=== PATIENT | female | born 2005 | race American Indian/Alaskan Native ===

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

== ENCOUNTER 2024-01-07 07:04 | Emergency (ER) | payer BC ==
[2024-01-07] MEDS: Metoclopramide 10 MG/2 ML SDV IVPUSH ONE (07:33)
[2024-01-07] MEDS: Ketorolac 30 MG/ML SDV IVPUSH ONE (07:35)
[2024-01-07] MEDS: Sodium Chloride 0.9% 1,000 ML IV ONE (07:55)
[2024-01-07 07:56] LABS: A/G RATIO 0.9; ALANINE AMINOTRANSFERASE,ALT 18 U/L (14-59); ALBUMIN 3.4 g/dL (3.4-5.0); ALKALINE PHOSPHATASE 99 U/L (46-116); ANION GAP 11.4 mEq/L (7-13); ASPARTATE AMNIOTRANSFERASE,AST 9 U/L (15-37); BILIRUBIN TOTAL 0.2 mg/dL (0.2-1.0); BLOOD UREA NITROGEN,BUN 11 mg/dL (7-18); BUN/CREATININE RATIO 14.7 (No establ ref range); C-REACTIVE PROTEIN 1.65 ng/dL (<=0.50); CALCIUM 8.4 mg/dL (8.5-10.1); CARBON DIOXIDE,CO2 25 mmol/L (21-32); CHLORIDE,CL 106 mmol/L (98-107); CREATININE 0.75 mg/dL (0.55-1.02); EST CRCL DRUG DOSING (CG) 104.18 mL/min; GLUCOSE RANDOM 114 mg/dL (70-99); LIPASE 32 U/L (16-77); POTASSIUM,K 3.4 mmol/L (3.5-5.1); PROTEIN TOTAL,TP 7.3 g/dL (6.4-8.2); SODIUM,NA 139 mmol/L (136-145)
[2024-01-07 07:57] LABS: ESTIMATED GFR 118 mL/min (>=60)
[2024-01-07 08:02] LABS: INR 0.9 (0.9-1.2); PROTHROMBIN TIME 9.6 SEC (9.0-12.0)
[2024-01-07 08:05] LABS: HCG QUALITATIVE,SERUM NEGATIVE (NEGATIVE)
[2024-01-07] MEDS: Iopamidol 612 MG/ML 100 ML Bottle IVPUSH ONE (08:11)
[2024-01-07] MEDS: Potassium Chloride 10 MEQ Tab.ER PO ONE (08:58)
[2024-01-07 09:13] LABS: APPEARANCE,URINE CLEAR (CLEAR); BILIRUBIN,URINE NEGATIVE (NEGATIVE); COLOR,URINE YELLOW (YELLOW); GLUCOSE,URINE NEGATIVE (NEGATIVE); KETONES,URINE NEGATIVE (NEGATIVE); LEUKOCYTE ESTERASE,URINE NEGATIVE (NEGATIVE); NITRITE,URINE NEGATIVE (NEGATIVE); OCCULT BLOOD,URINE NEGATIVE (NEGATIVE); PROTEIN,URINE NEGATIVE (NEGATIVE); UROBILINOGEN,URINE 0.2 mg/dL (0.2-1.0)
== END 2024-01-07 10:00 | disposition home or self-care (01) ==
LOC: DL.ED 07:04
DX: K80.20 Calculus of gallbladder without cholecystitis without obstruction (principal); K21.9 Gastro-esophageal reflux disease without esophagitis; E66.9 Obesity, unspecified; Z79.899 Other long term (current) drug therapy
CPT/HCPCS: 36415; 74177; 76705; 80053; 81003; 83605; 83690; 84703; 85025; 85610; 86140; 96361; 96374; 96375; 99284; 99284-25; A9270-GY; J1885; J2765; J7030; Q9967

== ENCOUNTER 2024-01-30 19:07 | Emergency (ER) | payer BC ==
[2024-01-30] MEDS: Ondansetron 4 MG/2 ML SDV IVPUSH ONE (19:36)
[2024-01-30 19:42] LABS: BASOPHILS PERCENT AUTO 0.5 % (0.0-1.0); HEMATOCRIT 37.1 % (37.0-47.0); HEMOGLOBIN 11.9 g/dL (12.0-16.0); LYMPHOCYTES PERCENT AUTO 29.8 % (20.5-50.1); MEAN CORPUSCULAR HEMOGLOBIN 27.6 pg (27.0-34.0); MEAN CORPUSCULAR HGB CONC 32.1 g/dL (33.0-35.0); MEAN CORPUSCULAR VOLUME 86.1 fL (80-100); MONOCYTES PERCENT AUTO 6.3 % (2-8); NEUTROPHILS PERCENT AUTO 62.4 % (42.2-75.2); PLATELET COUNT,PLT 447 10^3/uL (150-450); RED BLOOD CELL COUNT 4.31 10^6/uL (4.2-5.4); WHITE BLOOD CELL COUNT,WBC 12.4 10^3/uL (5.0-10.0)
[2024-01-30 19:54] LABS: A/G RATIO 0.8; ALBUMIN 3.6 g/dL (3.4-5.0); ANION GAP 13.2 mEq/L (7-13); BILIRUBIN TOTAL 0.4 mg/dL (0.2-1.0); BUN/CREATININE RATIO 8.9 (No establ ref range); CALCIUM 8.5 mg/dL (8.5-10.1); CREATININE 0.9 mg/dL (0.55-1.02); EST CRCL DRUG DOSING (CG) 86.82 mL/min; POTASSIUM,K 3.2 mmol/L (3.5-5.1); PROTEIN TOTAL,TP 7.9 g/dL (6.4-8.2)
[2024-01-30] MEDS: fentaNYL 100 MCG/2 ML SDV IVPUSH ONE (20:39)
[2024-01-30] MEDS: Iopamidol 612 MG/ML 100 ML Bottle IVPUSH ONE (20:51)
[2024-01-30] MEDS: Iopamidol 755 Mg/ML 100 ML Bottle IVPUSH ONE (21:09)
[2024-01-30] MEDS: NS + KCl 20mEq/L 1,000 ML IV SCH (21:15)
[2024-01-30] MEDS: NS with KCl 40mEq 1,000 ML IV SCH (22:58)
== END 2024-01-30 23:50 ==
LOC: DL.ED 19:07
DX: K80.20 Calculus of gallbladder without cholecystitis without obstruction (principal); K83.8 Other specified diseases of biliary tract; K80.50 Calculus of bile duct without cholangitis or cholecystitis without obstruction; R01.1 Cardiac murmur, unspecified; K21.9 Gastro-esophageal reflux disease without esophagitis; E66.9 Obesity, unspecified; Z79.899 Other long term (current) drug therapy
CPT/HCPCS: 36415; 74177; 80053; 83690; 84703; 85025; 96365; 96366; 96375; 99285; J2405; J3010; J3480; Q9967